=== PATIENT | male | born 1955 | race Hispanic/Latino ===

== ENCOUNTER 2020-07-28 18:48 | Emergency (ER) | payer BC ==
[2020-07-28] MEDS ORDERED: SODIUM CHLORIDE 0.9% 1000ML 1,000 ML IV STA (19:24)
[2020-07-28] MEDS ORDERED: FAMOTIDINE 20 MG/2 ML VIAL IV ONE ×2 (19:30→20:17)
[2020-07-28] MEDS ORDERED: ONDANSETRON HCL INJ 2MG/ML 2ML 2 MG/ML VIAL IV ONE (19:30)
[2020-07-28] MEDS ORDERED: KETOROLAC TROMETHAMINE 30 MG/ML VIAL IV ONE (19:30)
[2020-07-28] MEDS ORDERED: PIPER-TAZ 3.375 GM 50 ML IV ONE (19:30)
[2020-07-28] MEDS ORDERED: IOPAMIDOL 370 MG/ML 200 ML INFUS..BTL INJ ONE (20:00)
[2020-07-28] MEDS ORDERED: SODIUM CHLORIDE 0.9% 50ML 50 ML ONE (20:00)
[2020-07-28] MEDS ORDERED: ONDANSETRON HCL INJ 2MG/ML 2ML 2 MG/ML VIAL ONE (20:16)
[2020-07-28] MEDS ORDERED: PIPER-TAZ 3.375 GM 50 ML ONE (20:17)
[2020-07-28] MEDS ORDERED: SODIUM CHLORIDE 0.9% 1000ML 1,000 ML ONE (20:17)
[2020-07-28] MEDS ORDERED: KETOROLAC TROMETHAMINE 30 MG/ML VIAL ONE (20:17)
[2020-07-28] MEDS ORDERED: IBUPROFEN IB200 MG PO (21:39)
[2020-07-28] MEDS ORDERED: PROBIOTIC & AC1 EACH PO (21:39)
[2020-07-28] MEDS ORDERED: AUGMENTIN 875-1 EACH PO (21:39)
[2020-07-28] MEDS ORDERED: CEFTRIAXONE SOD 1 GM VIAL IV ONE (22:00)
[2020-07-28 22:46] VITALS: BP 148/65
== END 2020-07-28 22:46 | disposition home or self-care (01) ==
LOC: FSED 19:15
DX: J36 Peritonsillar abscess (principal); E11.65 Type 2 diabetes mellitus with hyperglycemia
CPT/HCPCS: 42700; 70491; 83518; 87071; 87205; 99284; J1885; J2405; J2543; J7030; Q9967